=== PATIENT | female | born 2000 | race Caucasian/White ===

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

== ENCOUNTER 2021-05-25 21:59 | Inpatient (IN) ==
[2021-05-25 23:35] LABS: Basophils # (auto) 0.03 K/uL (0-0.2); Basophils % (auto) 0.5 %; Eosinophils # (auto) 0.05 K/uL (0-0.5); Eosinophils % (auto) 0.8 %; Hematocrit (blood only) 42.6 % (37-47); Hemoglobin 14.4 g/dL (12.0-16.0); Immature Granulocytes # (auto) 0.01 K/uL (0.00-0.02); Immature Granulocytes % (auto) 0.2 %; Lymphocytes # (auto) 2.69 K/uL (1.2-3.4); Lymphocytes % (auto) 44.9 %; Mean Corpuscular Hgb Conc 33.8 g/dL (32-36); Mean Corpuscular Volume 91.8 fL (80-100); Mean Platelet Volume 9.8 fL (7.4-10.4); Monocytes # (auto) 0.44 K/uL (0.11-0.59); Monocytes % (auto) 7.3 %; Neutrophils # (auto) 2.77 K/uL (1.4-6.5); Neutrophils % (auto) 46.3 %; Platelet Count 359 K/uL (130-400); RDW Coefficient of Variation 14.4 % (11.5-14.5); RDW Standard Deviation 48.8 fL (36.4-46.3); Red Blood Count 4.64 M/uL (4.2-5.4); White Blood Count 5.99 K/uL (4.8-10.8)
--- NOTE | 2021-05-25 23:37 | Emergency Department Note ---
History of Present Illness General Chief complaint: Alcohol Intoxication Stated complaint: suicidal ideation Time Seen by Provider: 05/25/21 23:08 Source: patient and friends Mode of arrival: ambulatory History of Present Illness Provider complaint: Mental health evaluation This is a 21-year-old female presents emergency department for mental health evaluation. Patient states she is here because she is having a panic attack and her friend brought her. Patient states she has longstanding history of anxiety and does take Prozac although she does not feel that is helping. She states intermittently she also will use hydroxyzine for her anxiety although she did not take that this evening. Patient declined to discuss what may have prompted her panic attacks. She admits to a history of suicide attempts but would not disclose how she attempted or when. She denies any current depression, hallucinations, or paranoia. Pt seen during a time of high acuity and national emergency pandemic while wearing PPE. Home Medications Medication Instructions Recorded Confirmed Type fluoxetine 10 mg capsule (Prozac) 10 mg PO DAILY 05/26/21 05/26/21 History Allergies Allergy/AdvReac Type Severity Reaction Status Date / Time No Known Allergies Allergy Verified 12/01/20 11:40 Past Med/Surg History Medical History Acute appendicitis Uses control Surgical History History of appendectomy No pertinent past surgical history Social History Smoking Status: Never smoker Tobacco Type: E-cigarettes / Vaping Preferred Language: Upper Sorbian Communication Ability: Effective Maintenance Journeyman Required: No Beliefs That Will Affect Care: None Feels Safe at Home: Yes Assistive Devices: Glasses Review of Systems A total of 10 systems reviewed and were otherwise negative All systems reviewed & are unremarkable except as noted in HPI & below Physical Exam Vital Signs Vital Signs - 24 hr 05/26/21 08:42 05/26/21 15:25 05/26/21 19:00 Temperature 37.5 C Temperature Source Oral Pulse Rate [Right Finger] 82 75 83 Pulse Rhythm [Right Finger] Regular Respiratory Rate 18 17 18 Respiratory Effort / Characteristics Non-Labored Non-Labored Respiratory Depth Normal Normal Normal Respiratory Pattern Regular Blood Pressure [Right Arm] 137/102 H 152/110 H 145/75 H Blood Pressure Mean [Right Arm] 113 124 98 Blood Pressure Position [Right Arm] Sitting Lying Pulse Oximetry 97 99 97 Oxygen Delivery Method Room Air Room Air Room Air GENERAL: alert, well appearing, well nourished, no distress, non-toxic, appears slightly intoxicated EYE EXAM: normal conjunctiva, PERRL and EOM's grossly intact OROPHARYNX: no exudate, no erythema, lips, buccal mucosa, and tongue normal and mucous membranes are moist NECK: supple, no nuchal rigidity, no adenopathy, non-tender LUNGS: Clear to auscultation. Normal chest wall mechanics, no w/r/r HEART: no murmurs, S1 normal and S2 normal ABDOMEN: abdomen soft, non-tender, normo-active bowel sounds, no masses, no rebound or guarding. BACK: Back is symmetrical on inspection and there is no deformity, no midline tenderness, no CVA tenderness. SKIN: no rashes and no bruising UPPER EXTREMITIES: upper extremities are grossly normal. FROM, nml pulses b/l. LOWER EXTREMITIES: No pitting edema. FROM, nml pulses b/l. NEURO EXAM: Normal sensorium, cranial nerves II-XII grossly intact, normal speech, no gross weakness of arms, no gross weakness of legs. Gross sensation intact. Course Course 0335: Patient resting, no distress, vital signs stable. 0900: Patient signed out to Dr. Odonnell at change of shift. Patient still awaiting sobriety and mental health evaluation. Administered Medications Discontinued Medications Fluoxetine HCl (Fluoxetine Hcl 20 Mg Cap) 20 mg PO NOW ONE Stop: 05/26/21 13:38 Last Admin: 05/26/21 13:46 Dose: 20 mg Documented by: [id number] Medical Decision Making Differential Diagnosis Differential diagnoses considered include mood disorder, infection, hypoglycemia, electrolyte abnormalities, cardiac sources, intracerebral event, t oxicologic, neurologic, as well as others. Medical Records Attestation: I reviewed the patient's medical records. Home Medications Current Medication List: was personally reviewed by me Laboratory Data Attestation: I reviewed the patient's lab results. Result diagrams: 05/25/21 23:22 05/25/21 23:22 Lab Results 05/25/21 05/25/21 05/25/21 Range/Units 23:22 23:22 23:22 WBC 5.99 (4.8-10.8) K/uL RBC 4.64 (4.2-5.4) M/uL Hgb 14.4 (12.0-16.0) g/dL Hct 42.6 (37-47) % MCV 91.8 (80-100) fL MCH 31.0 (25-34) pg MCHC 33.8 (32-36) g/dL RDW Std Deviation 48.8 H (36.4-46.3) fL RDW Coeff of Rj 14.4 (11.5-14.5) % Plt Count 359 (130-400) K/uL MPV 9.8 (7.4-10.4) fL Immature Gran % (Auto) 0.2 % Neut % (Auto) 46.3 % Lymph % (Auto) 44.9 % [place] % (Auto) 7.3 % Eos % (Auto) 0.8 % Baso % (Auto) 0.5 % Neut # (Auto) 2.77 (1.4-6.5) K/uL Lymph # (Auto) 2.69 (1.2-3.4) K/uL [place] # (Auto) 0.44 (0.11-0.59) K/uL Eos # (Auto) 0.05 (0-0.5) K/uL Baso # (Auto) 0.03 (0-0.2) K/uL Immature Gran # (Auto) 0.01 (0.00-0.02) K/uL Sodium 143 (136-145) mmol/L Potassium 3.3 L (3.5-5.1) mmol/L Chloride 109 H (98-107) mmol/L Carbon Dioxide 29 (21-32) mmol/L Anion Gap 5.0 (3-11) BUN 5 L (7-18) mg/dl Creatinine 0.69 (0.6-1.2) mg/dl Est Cr Clr Drug Dosing Not Reportable Est GFR ( Amer) 144.2 ml/min Est GFR (Non-Af Amer) 124.4 ml/min BUN/Creatinine Ratio 6.7 L (10-20) Glucose 86 (70-99) mg/dl Calcium 8.6 (8.5-10.1) mg/dl Total Bilirubin 0.3 (0.2-1) mg/dl AST 41 H (15-37) U/L ALT 83 H (12-78) U/L Alkaline Phosphatase 103 (45-117) U/L Total Protein 8.2 (6.4-8.2) gm/dl Albumin 4.2 (3.4-5.0) gm/dl Globulin 4.0 (2.5-4.0) gm/dl Albumin/Globulin Ratio 1.1 (0.9-2) TSH 2.400 (0.300-4.500) uIu/ml HCG, Qual (Negative) Urine Color Urine Appearance (Clear) Urine pH (4.5-7.5) Ur Specific [place] (1.000-1.030) Urine Protein (Negative) Urine Glucose (UA) (Negative) Urine Ketones (Negative) Urine Blood (Negative) Urine Nitrite (Negative) Urine Bilirubin (Negative) Urine Urobilinogen (Negative) Ur Leukocyte Esterase (Negative) Salicylates < 1.7 L (2.8-20) mg/dl Urine Opiates Screen (Neg) Ur Methadone, Qual (Neg) Acetaminophen < 2 L (10-30) ug/ml Urine Barbiturates (Neg) Ur Phencyclidine (PCP) (Neg) U Amphetamin/Meth Scrn (Neg) MDMA (Ecstasy) Screen (Neg) U Benzodiazepines Scrn (Neg) Ur Cocaine Metabolite (Neg) U Marijuana (THC) Screen (Neg) Ethyl Alcohol mg/dL (0-3) mg/dl COVID-19 Eval Order SARS-CoV-2 (PCR) (Negative) 05/25/21 05/25/21 05/26/21 Range/Units 23:22 23:22 00:00 WBC (4.8-10.8) K/uL RBC (4.2-5.4) M/uL Hgb (12.0-16.0) g/dL Hct (37-47) % MCV (80-100) fL MCH (25-34) pg MCHC (32-36) g/dL RDW Std Deviation (36.4-46.3) fL RDW Coeff of Rj (11.5-14.5) % Plt Count (130-400) K/uL MPV (7.4-10.4) fL Immature Gran % (Auto) % Neut % (Auto) % Lymph % (Auto) % [place] % (Auto) % Eos % (Auto) % Baso % (Auto) % Neut # (Auto) (1.4-6.5) K/uL Lymph # (Auto) (1.2-3.4) K/uL [place] # (Auto) (0.11-0.59) K/uL Eos # (Auto) (0-0.5) K/uL Baso # (Auto) (0-0.2) K/uL Immature Gran # (Auto) (0.00-0.02) K/uL Sodium (136-145) mmol/L Potassium (3.5-5.1) mmol/L Chloride (98-107) mmol/L Carbon Dioxide (21-32) mmol/L Anion Gap (3-11) BUN (7-18) mg/dl Creatinine (0.6-1.2) mg/dl Est Cr Clr Drug Dosing Est GFR ( Amer) ml/min Est GFR (Non-Af Amer) ml/min BUN/Creatinine Ratio (10-20) Glucose (70-99) mg/dl Calcium (8.5-10.1) mg/dl Total Bilirubin (0.2-1) mg/dl AST (15-37) U/L ALT (12-78) U/L Alkaline Phosphatase (45-117) U/L Total Protein (6.4-8.2) gm/dl Albumin (3.4-5.0) gm/dl Globulin (2.5-4.0) gm/dl Albumin/Globulin Ratio (0.9-2) TSH (0.300-4.500) uIu/ml HCG, Qual Negative (Negative) Urine Color Yellow Urine Appearance Clear (Clear) Urine pH 5.5 (4.5-7.5) Ur Specific [place] 1.005 (1.000-1.030) Urine Protein Negative (Negative) Urine Glucose (UA) Negative (Negative) Urine Ketones Negative (Negative) Urine Blood Negative (Negative) Urine Nitrite Negative (Negative) Urine Bilirubin Negative (Negative) Urine Urobilinogen Negative (Negative) Ur Leukocyte Esterase Negative (Negative) Salicylates (2.8-20) mg/dl Urine Opiates Screen (Neg) Ur Methadone, Qual (Neg) Acetaminophen (10-30) ug/ml Urine Barbiturates (Neg) Ur Phencyclidine (PCP) (Neg) U Amphetamin/Meth Scrn (Neg) MDMA (Ecstasy) Screen (Neg) U Benzodiazepines Scrn (Neg) Ur Cocaine Metabolite (Neg) U Marijuana (THC) Screen (Neg) Ethyl Alcohol mg/dL 380.2 H (0-3) mg/dl COVID-19 Eval Order SARS-CoV-2 (PCR) (Negative) 05/26/21 05/26/21 05/26/21 Range/Units 00:00 17:00 17:00 WBC (4.8-10.8) K/uL RBC (4.2-5.4) M/uL Hgb (12.0-16.0) g/dL Hct (37-47) % MCV (80-100) fL MCH (25-34) pg MCHC (32-36) g/dL RDW Std Deviation (36.4-46.3) fL RDW Coeff of Rj (11.5-14.5) % Plt Count (130-400) K/uL MPV (7.4-10.4) fL Immature Gran % (Auto) % Neut % (Auto) % Lymph % (Auto) % [place] % (Auto) % Eos % (Auto) % Baso % (Auto) % Neut # (Auto) (1.4-6.5) K/uL Lymph # (Auto) (1.2-3.4) K/uL [place] # (Auto) (0.11-0.59) K/uL Eos # (Auto) (0-0.5) K/uL Baso # (Auto) (0-0.2) K/uL Immature Gran # (Auto) (0.00-0.02) K/uL Sodium (136-145) mmol/L Potassium (3.5-5.1) mmol/L Chloride (98-107) mmol/L Carbon Dioxide (21-32) mmol/L Anion Gap (3-11) BUN (7-18) mg/dl Creatinine (0.6-1.2) mg/dl Est Cr Clr Drug Dosing Est GFR ( Amer) ml/min Est GFR (Non-Af Amer) ml/min BUN/Creatinine Ratio (10-20) Glucose (70-99) mg/dl Calcium (8.5-10.1) mg/dl Total Bilirubin (0.2-1) mg/dl AST (15-37) U/L ALT (12-78) U/L Alkaline Phosphatase (45-117) U/L Total Protein (6.4-8.2) gm/dl Albumin (3.4-5.0) gm/dl Globulin (2.5-4.0) gm/dl Albumin/Globulin Ratio (0.9-2) TSH (0.300-4.500) uIu/ml HCG, Qual (Negative) Urine Color Urine Appearance (Clear) Urine pH (4.5-7.5) Ur Specific [place] (1.000-1.030) Urine Protein (Negative) Urine Glucose (UA) (Negative) Urine Ketones (Negative) Urine Blood (Negative) Urine Nitrite (Negative) Urine Bilirubin (Negative) Urine Urobilinogen (Negative) Ur Leukocyte Esterase (Negative) Salicylates (2.8-20) mg/dl Urine Opiates Screen Neg (Neg) Ur Methadone, Qual Neg (Neg) Acetaminophen (10-30) ug/ml Urine Barbiturates Neg (Neg) Ur Phencyclidine (PCP) Neg (Neg) U Amphetamin/Meth Scrn Neg (Neg) MDMA (Ecstasy) Screen Neg (Neg) U Benzodiazepines Scrn Neg (Neg) Ur Cocaine Metabolite Neg (Neg) U Marijuana (THC) Screen Neg (Neg) Ethyl Alcohol mg/dL (0-3) mg/dl COVID-19 Eval Order Covid19 at [facility] SARS-CoV-2 (PCR) NEGATIVE (Negative) MDM Narrative Patient well-appearing here although on check of labs patient found to be profoundly intoxicated. Patient admitted to anxiety, history of suicide attempts, however would not answer initial questions otherwise. Patient sobered up in usual and expected fashion, vital signs otherwise stable throughout. Patient signed out to Dr. Odonnell in the morning pending sobriety and additional mental health evaluation. No evidence of acute alcohol withdrawal. I do not suspect other occult infectious etiology, coingestion, or other toxidrome. Impression & Plan Alcoholic intoxication, Anxiety Discharge Plan Visit Data Chief Complaint: Alcohol Intoxication Stated Complaint: suicidal ideation ED Provider: Jose Francisco Odonnell Discharge Problem: Alcoholic intoxication, Anxiety Patient Disposition: Admitted As Inpatient Discharge Instructions Interventions: ED Discharge Assessment Last Done: 05/26/21 21:34 Discharge Problem: Alcoholic intoxication Qualifiers: Complication of substance-induced condition: uncomplicated Qualified Code(s): F10.920 - Alcohol use, unspecified with intoxication, uncomplicated
[2021-05-25 23:53] LABS: Alanine Aminotransferase 83 U/L (12-78); Albumin Level 4.2 gm/dl (3.4-5.0); Aspartate Aminotransferase 41 U/L (15-37); BUN Creatinine Ratio 6.7 (10-20); Blood Urea Nitrogen 5 mg/dl (7-18); Calcium 8.6 mg/dl (8.5-10.1); Carbon Dioxide 29 mmol/L (21-32); Chloride 109 mmol/L (98-107); Est GFR (African American) 144.2 ml/min; Est GFR (Non-African American) 124.4 ml/min; Glucose 86 mg/dl (70-99); Potassium 3.3 mmol/L (3.5-5.1); Sodium 143 mmol/L (136-145)
[2021-05-25 23:55] LABS: Pregnancy Test, Serum Negative (Negative)
[2021-05-26 00:04] LABS: Albumin Globulin Ratio 1.1 (0.9-2); Alkaline Phosphatase 103 U/L (45-117); Bilirubin,Total 0.3 mg/dl (0.2-1); Total Protein 8.2 gm/dl (6.4-8.2)
[2021-05-26 00:05] LABS: Acetaminophen < 2 ug/ml (10-30); Salicylate < 1.7 mg/dl (2.8-20)
[2021-05-26 00:24] LABS: Appearance Urine Clear (Clear); Bilirubin Urine Negative (Negative); Blood Urine Negative (Negative); Color Urine Yellow; Glucose Urine UA Negative (Negative); Ketones Urine Negative (Negative); Leukocyte Esterase Urine Negative (Negative); Nitrite Urine Negative (Negative); Protein Urine Negative (Negative); Specific Gravity Urine 1.005 (1.000-1.030); Urobilinogen Urine Negative (Negative); pH Urine 5.5 (4.5-7.5)
[2021-05-26 00:43] LABS: Amphetamines+Metham, Urine Neg (Neg); Barbiturates, Urine Neg (Neg); Benzodiazepine, Urine Neg (Neg); Cocaine, Urine Neg (Neg); MDMA (Ecstacy), Urine Neg (Neg); Methadone, Urine Neg (Neg); Opiate, Urine Neg (Neg); Phencyclidine, Urine Neg (Neg)
--- NOTE | 2021-05-26 09:03 | Emergency Department Note ---
ED Visit Note ED Physician Sign Out Note: 21 yr old intoxicated female brought in by friends for concerns of mental health. She is here on a 302 petition following sobering, it is not currently a warrant. She was too intoxicated to be discharged overnight. She was signed out to my Dr Gordillo pending sobering up and mental health evaluation. Patient is withholding of information when I discuss her situation. It is clear that she has significant mental health issue and requires hospitalization after extensive discussions with her, friends, and family. Case Management agrees with need for hospitalization. She is medically clear. Signed out to Dr Acevedo pending determination of placement. Jose Francisco Odonnell MD : Alcoholic intoxication Qualifiers: Complication of substance-induced condition: uncomplicated Qualified Code(s): F10.920 - Alcohol use, unspecified with intoxication, uncomplicated
[2021-05-26] MEDS ORDERED: FLUoxetine HCL 20 MG CAP PO ONE (13:37)
[2021-05-26] MEDS ORDERED: BISMUTH SUBSALICYLATE LIQD 236 ML PO PRN (21:03)
[2021-05-26] MEDS ORDERED: MAGNESIUM HYDROXIDE SUSP 30 ML UDC PO PRN (21:03)
[2021-05-26] MEDS ORDERED: ALUMINUM/MAGNESIUM SUSP 30 ML UDC PO PRN (21:03)
[2021-05-26] MEDS ORDERED: hydrOXYzine HCl 25 MG TAB PO PRN (21:03)
[2021-05-26] MEDS ORDERED: SODIUM CHLORIDE 0.65% NA SOLN 45 ML (OCEAN) PRN (21:03)
[2021-05-26] MEDS ORDERED: ACETAMINOPHEN 325 MG TAB PO PRN (21:03)
[2021-05-27] MEDS ORDERED: FLUoxetine HCL 20 MG CAP PO SCH (09:00)
[2021-05-27] MEDS: FOLIC ACID 1 MG TAB PO SCH (10:02)
[2021-05-27] MEDS: THIAMINE HCL 100 MG TAB PO SCH (10:02)
[2021-05-27] MEDS: LORazepam 1 MG TAB PO PRN ×2 (10:12→16:15)
[2021-05-27] MEDS ORDERED: NICOTINE POLACRILEX 2 MG GUM MT PRN (15:58)
--- NOTE | 2021-05-27 17:34 | History & Physical ---
Date of Service May 27, 2021 Impression / Recommendations Impression The patient is a 21 year old with a history of OCD, ADHD and panic disorder who was admitted for alcohol use, depression and SI. The patient is deemed unstable and requires psychiatric hospitalization for diagnostic clarification, safety and stabilization, medication management and development of further coping skills. She is at high acute risk for self-harm based on SI and risk factors including alcohol use. Diagnostically consistent with MDD vs substance-induced depression along with OCD and some symptoms of PTSD. Meets criteria for alcohol use binge drinking and nicotine use. The patient's audit score and use history suggests problematic substance use. Brief intervention was offered and accepted. Intervention was greater than 5 minutes in length and included assessing readiness to quit, advice on how to reduce or abstain and to set a specific goal for this hospitalization. web worker will also assist in anticipating barriers to reducing or abstaining from substance use and in problem-solving for solutions to those problems while arranging for referral to appropriate treatment. Discussed option to start naltrexone to help reduce risks of drinking and risks of self-harm as drinking worsens her SI, she declined at this time as she plans to return home with parents for remainder of semester where she does not drink and feels this supportive environment will be enough. The patient is in action stage with regards to transtheoretical model of change. The patient is advised to decrease consumption due to depressant effects and risk of interaction with prescription medications. The patient would like to stop drinking or at least cut down on drinking and will be provided with recovery materials to continue to educate self on how to cope with their condition without using substances. Discussed medication treatment options in detail. Discussed risks, benefits and alternatives. Patient would like to increase her prozac dose to 30mg to further address her symptoms of depression and OCD as well as potential benefit for PTSD symptoms. Counseled on black box warning of potential for emergence of or increased SI and need to let staff know should this occur or should they feel unsafe. Also discussed importance of seeking emergency care following discharge if this side effect occurs in the future. (1) Obsessive compulsive disorder: (2) Major depression, recurrent: 05/27/21--The patient was admitted to the [facility] ([facility]) on q15 min checks (behavioral with suicide precautions) for safety. The patient will participate in group, recreational, and milieu therapies and will be offered additional individual and family sessions as clinically appropriate. Increase Prozac from 20 to 30mg qd and offer nicotine replacement gum. Inventory Assets Strengths: supportive family, outpatient provider Needs: coping skills, therapist Risk Factors Assessment : Yes Do You Have Access To A Gun?: No Health Problems: No Mental Health Diagnoses: Yes Substance Use Disorders: Yes Previous Attempt: Yes Previous Attempt; Highly Lethal: No Previous Attempt; Didn't Tell Anyone: Yes Family History of Suicide: Yes Hopelessness: Yes Protective Factors Assessment Employed: Yes Stable Relationships: Yes Supportive Family: Yes Good Rapport with Provider: Yes Psychiatric History Identifying Data KIERAN SALDAÑA is a 21-year-old woman and [employer] senior who lives with roommates off- campus, has a history of OCD, panic disorder and ADHD, and was admitted on 05/26/21 21:25 on a 201 voluntary commitment after presenting with elevated RADHA and reporting worsening mood and SI with plan. Chief Complaint "Drinking makes things much worse". History of Present Illness Kieran presents for admission after making concerning statements of SI to roommates while drinking on Tuesday. Kieran describes a history of mood symptoms including panic attacks, OCD and depression which worsened over the summer and she began seeing an outpatient psychiatrist near her family's home in [place] and was started on prozac and concerta for ADHD. She feels the Prozac has been helping with significant reduction in panic attacks but ongoing depression and OCD. On Tuesday she felt very triggered by a professor's lecture about eating disorders and the harm they can cause. She has a pas history of restrictive eating and she found herself ruminating about the harm she may have done to her body. From there her OCD thoughts took over and she felt like "I couldn't get out of my own head". That lead her to drink cans of 4loco with her roommates to help reduce the OCD thoughts. She acknowledges that when she drinks she often develops passive SI and sometimes considers plans but never acts on these plans. She notes that she will sometimes think of passive SI while not drinking but drinking alcohol always makes things worse. While intoxicated she told roommates she no longer wanted to be alive and stated she may go try to jump from the roof which prompted them to convince her to come to the ED. Once clinically sober she denied ever having any intent but noted that she has been having a difficult time this semester and having periods of SI. She endorses depressive symptoms of hopelessness, helplessness, and guilt as well as decreased concentration. She denies any changes in sleep, appetite, interest, or energy level. She feels the OCD thoughts tend to trigger depression and this in turn leads to thoughts of SI that others would be better off if she weren't alive or that she is a burden. She states she has significant deterrents to suicide including her family and states "I think about it but I would never do it". Psychiatric ROS notable for: no hx of delonte, hx panic improving on prozac, hx anxiety largely somatic sx, PTSD sx of hypervigilance/avoidance/flashbacks/night terrors, hx restrictive eating disorder, no hx self-harm. Past Psychiatric History Previous Psych History: ADHD, OCD, panic disorder Current Psychiatric Diagnosis: OCD Outpatient Services: has psychiatrist in [place] Previous Psych Admissions: none Do You Have Access To A Gun?: No History of Previous Suicide Attempt: Yes (at age 15 took 10 excedrin pills after reasearching 8 was max dose) Describe Attempts in the Past: None Past Medication Trials: none Allergies Allergy/AdvReac Type Severity Reaction Status Date / Time No Known Allergies Allergy Verified 12/01/20 11:40 Home Medications Medication Instructions Recorded Confirmed Type fluoxetine 10 mg capsule (Prozac) 10 mg PO DAILY 05/26/21 05/26/21 History Family History Family History of: Alcoholism/Drug Abuse Alcohol History Hx of Alcohol Use Over the Past 12 Months: Yes AUDIT Total Score: 23 binge drinking pattern, hx of ~10 blackouts, has gone more than 10 days without drinking and no withdrawal symptoms in last few weeks while home visiting parents; no hx of withdrawal seziures Smoking Use Smoking Status: Current every day smoker (vapes daily for last 4 years) Substance History Hx of Prescription Med Misuse Over the Past 12 Months: No Hx of Over the Counter Med Misuse Over the Past 12 Months: No Hx of Inhalent Misuse Over the Past 12 Months: No Hx of Organic Substance Use Over the Past 12 Months: No Hx of Illegal Substances/Street Drug Use Over Past 12 Months: No Problems as a Result of Past Substance Use: None Identified Personal History Living Arrangements: Apartment Highest Grade Completed: Some College Highest Grade Completed Comment: Senior at [employer] 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) Marital Status: Single Number Of Children: 0 Beliefs That Will Affect Care: None Current Legal Problems: No Hx Traumatic Life Events: Yes Patient History Medical History Acute appendicitis ADHD Major depression, recurrent Obsessive compulsive disorder Panic disorder Uses control Surgical History History of appendectomy No pertinent past surgical history Social History Smoking Status: Never smoker Tobacco Type: E-cigarettes / Vaping Preferred Language: [place] Communication Ability: Effective Service Car Operator Required: No Beliefs That Will Affect Care: None Feels Safe at Home: Yes Assistive Devices: Glasses Review of Systems Review of Systems: All systems reviewed & are unremarkable except as noted in HPI & below (some shakiness which she thinks could be due to nicotine withdrawal) Physical Exam Psychiatric: Orientation: alert and oriented x 3 Apperance: appropriately dressed and appropriately groomed Eye Contact: good eye contact Motor Behavior: steady gait and station and no abnormal motor movements Speech: normal rate/rhythm/volume of speech Affect: + anxious affect Mood: + depressed mood and + anxious mood Thought Process: goal directed thought process Thought Content: reality based without delusions Suicidal Thoughts: denies suicidal plan and denies suicidal intent; + reports suicidal thoughts experiences intermittent intrusive SI Homicidal Thoughts: denies homicidal thoughts Hallucinations: no auditory hallucinations and no visual hallucinations Cognition: recent memory grossly intact, remote memory grossly intact, attention grossly intact and language grossly intact Estimated Intelligence: consistent with education level Insight: + fair insight Judgement: + fair judgement Vital Signs (Past 24 Hours): Last Vital Signs Temp 37 C 05/27/21 16:07 Pulse 112 H 05/27/21 16:07 Resp 16 05/27/21 16:07 BP 142/106 H 05/27/21 16:07 Pulse Ox 96 05/26/21 22:08 Exam Statement: A physical exam was performed in the ED by Dr. Gordillo for the purposes of medical clearance. I accept that physical as correct and adequate for the purposes of the inpatient physical exam. Results & Data ([facility]) Laboratory Results Laboratory Results - last 24 hr 05/26/21 05/26/21 17:00 17:00 COVID-19 Eval Order Covid19 at [facility] SARS-CoV-2 (PCR) NEGATIVE Current Inpatient Medications Current Inpatient Medications: Current Inpatient Medications Acetaminophen (Acetaminophen 325 Mg Tab) 650 mg PO Q4H PRN PRN Reason: Headache or Minor Fever Stop: 06/25/21 21:02 Al Hydrox/Mg Hydrox/Simethicone (Aluminum/Magnesium Susp 30 Ml Udc) 30 ml PO Q4H PRN PRN Reason: GI Upset Stop: 06/25/21 21:02 Bismuth Subsalicylate (Bismuth Subsalicylate Liqd 236 Ml) 15 ml PO PRN PRN PRN Reason: Loose Stool Stop: 06/25/21 21:02 Fluoxetine HCl (Fluoxetine Hcl 20 Mg Cap) 20 mg PO QAM MICHAEL Stop: 06/26/21 08:59 Last Admin: 05/27/21 10:39 Dose: 20 mg Documented by: Folic Acid (Folic Acid 1 Mg Tab) 1 mg PO QAM MICHAEL Stop: 06/26/21 08:59 Last Admin: 05/27/21 10:02 Dose: 1 mg Documented by: Hydroxyzine HCl (Hydroxyzine Hcl 25 Mg Tab) 50 mg PO HSZ PRN PRN Reason: Insomnia Stop: 06/25/21 21:02 Hydroxyzine HCl (Hydroxyzine Hcl 25 Mg Tab) 25 mg PO Q4H PRN PRN Reason: Anxiety Stop: 06/25/21 21:02 Lorazepam (Lorazepam 1 Mg Tab) 1 - 3 mg PO UD PRN; Protocol PRN Reason: EtoH Withdrawal AWSS 6-10+ Stop: 06/26/21 08:25 Last Admin: 05/27/21 16:15 Dose: 1 mg Documented by: Magnesium Hydroxide (Magnesium Hydroxide Susp 30 Ml Udc) 30 ml PO DAILY PRN PRN Reason: Constipation Stop: 06/25/21 21:02 Nicotine Polacrilex (Nicotine Polacrilex 2 Mg Gum) 1 piece MT PRN PRN PRN Reason: Prophylaxis Stop: 06/26/21 15:57 Sodium Chloride (Sodium Chloride 0.65% Na Soln 45 Ml ([place])) 1 - 2 sprays NA PRN PRN PRN Reason: Nasal Dryness/Congestion Stop: 06/25/21 21:02 Thiamine HCl (Thiamine Hcl 100 Mg Tab) 100 mg PO QAM MICHAEL Stop: 06/26/21 08:59 Last Admin: 05/27/21 10:02 Dose: 100 mg Documented by:
[2021-05-28] MEDS: FLUoxetine HCL 10 MG CAP PO SCH (09:34)
[2021-05-28] MEDS: FOLIC ACID 1 MG TAB PO SCH (09:35)
[2021-05-28] MEDS: THIAMINE HCL 100 MG TAB PO SCH (09:35)
[2021-05-28] MEDS: LORazepam 1 MG TAB PO PRN (09:56)
[2021-05-28] MEDS: hydrOXYzine HCl 25 MG TAB PO PRN (15:11)
[2021-05-28] MEDS: NICOTINE 14 MG/24 HR PATCH TD SCH (16:07)
--- NOTE | 2021-05-28 16:26 | Psychiatric Progress Note ---
Date of Service May 28, 2021 Impression / Recommendations Impression The patient is a 21 year old with a history of OCD, ADHD and panic disorder who was admitted for alcohol use, depression and SI. The patient is deemed unstable and requires psychiatric hospitalization for diagnostic clarification, safety and stabilization, medication management and development of further coping skills. She is at high acute risk for self-harm based on SI and risk factors including alcohol use. Diagnostically consistent with MDD vs substance-induced depression along with OCD and some symptoms of PTSD. Meets criteria for alcohol use binge drinking and nicotine use. The patient's audit score and use history suggests problematic substance use. Brief intervention was offered and accepted. Intervention was greater than 5 minutes in length and included assessing readiness to quit, advice on how to reduce or abstain and to set a specific goal for this hospitalization. handy worker will also assist in anticipating barriers to reducing or abstaining from substance use and in problem-solving for solutions to those problems while arranging for referral to appropriate treatment. Discussed option to start naltrexone to help reduce risks of drinking and risks of self-harm as drinking worsens her SI, she declined at this time as she plans to return home with parents for remainder of semester where she does not drink and feels this supportive environment will be enough. The patient is in action stage with regards to transtheoretical model of change. The patient is advised to decrease consumption due to depressant effects and risk of interaction with prescription medications. The patient would like to stop drinking or at least cut down on drinking and will be provided with recovery materials to continue to educate self on how to cope with their condition without using substances. Discussed medication treatment options in detail. Discussed risks, benefits and alternatives. Patient would like to increase her prozac dose to 30mg to further address her symptoms of depression and OCD as well as potential benefit for PTSD symptoms. Counseled on black box warning of potential for emergence of or increased SI and need to let staff know should this occur or should they feel unsafe. Also discussed importance of seeking emergency care following discharge if this side effect occurs in the future. Today showing ongoing wiliness to discuss mood and reaching out to her supports. Tolerating prozac increase. (1) Obsessive compulsive disorder: (2) Major depression, recurrent: 05/28/21--Receiving ativan per CIWA protocol, vitals stable, also getting thiamine and folic acid. She would like to try the nicotine patch instead of the gum. Tolerating Prozac 30mg qd without any side effects so far. 05/27/21--The patient was admitted to the [facility] on q15 min checks (behavioral with suicide precautions) for safety. The patient will participate in group, recreational, and milieu therapies and will be offered additional individual and family sessions as clinically appropriate. Increase Prozac from 20 to 30mg qd and offer nicotine replacement gum. Inventory Assets Strengths: supportive family, outpatient provider Needs: coping skills, therapist Risk Factors Assessment : Yes Do You Have Access To A Gun?: No Health Problems: No Mental Health Diagnoses: Yes Substance Use Disorders: Yes Previous Attempt: Yes Previous Attempt; Highly Lethal: No Previous Attempt; Didn't Tell Anyone: Yes Family History of Suicide: Yes Hopelessness: Yes Protective Factors Assessment Employed: Yes Stable Relationships: Yes Supportive Family: Yes Good Rapport with Provider: Yes Interval History Identifying Information 21 year old with a history of OCD, ADHD and panic disorder who was admitted for alcohol use, depression and SI. Chief Complaint "I've had an emotional day". Review of Systems Sleep Information Total Hours of Sleep: 6.5 Meal Information Percent Meal Consumed - Breakfast: 90 Percent Meal Consumed - Lunch: 80 Percent Meal Consumed - Dinner: 75 Nutrition Comment: pt. asleep; meal dated, labeled and refrigerated Subjective Subjective Patient was seen & assessed and interval progress reviewed with treatment team nursing and social work. She received Ativan last night and this morning per CIWA scale procotcol. She slept well and had a good conversation with her family which was "emotional in a good way". She denies any SI today. She hasn't had any side effects from the increased prozac dose. Physical Exam Psychiatric Orientation: alert and oriented x 3 Apperance: appropriately dressed and appropriately groomed Eye Contact: good eye contact Motor Behavior: steady gait and station and no abnormal motor movements Speech: normal rate/rhythm/volume of speech Affect: + anxious affect Mood: + depressed mood and + anxious mood Thought Process: goal directed thought process Thought Content: reality based without delusions Suicidal Thoughts: denies suicidal thoughts, denies suicidal plan and denies suicidal intent Homicidal Thoughts: denies homicidal thoughts Hallucinations: no auditory hallucinations and no visual hallucinations Cognition: recent memory grossly intact, remote memory grossly intact, attention grossly intact and language grossly intact Estimated Intelligence: consistent with education level Insight: + fair insight Judgement: + fair judgement Vital Signs (Past 24 Hours) Last Vital Signs Temp 36.6 C 05/28/21 06:00 Pulse 87 05/28/21 06:18 Resp 14 05/28/21 06:00 BP 139/97 05/28/21 06:18 Pulse Ox 96 05/26/21 22:08 Results & Data ([facility]) Current Inpatient Medications Current Inpatient Medications: Current Inpatient Medications Acetaminophen (Acetaminophen 325 Mg Tab) 650 mg PO Q4H PRN PRN Reason: Headache or Minor Fever Stop: 06/25/21 21:02 Al Hydrox/Mg Hydrox/Simethicone (Aluminum/Magnesium Susp 30 Ml Udc) 30 ml PO Q4H PRN PRN Reason: GI Upset Stop: 06/25/21 21:02 Bismuth Subsalicylate (Bismuth Subsalicylate Liqd 236 Ml) 15 ml PO PRN PRN PRN Reason: Loose Stool Stop: 06/25/21 21:02 Fluoxetine HCl (Fluoxetine Hcl 10 Mg Cap) 30 mg PO QAM MICHAEL Stop: 06/27/21 08:59 Last Admin: 05/28/21 09:34 Dose: 30 mg Documented by: Folic Acid (Folic Acid 1 Mg Tab) 1 mg PO QAM [facility] Stop: 06/26/21 08:59 Last Admin: 05/28/21 09:35 Dose: 1 mg Documented by: Hydroxyzine HCl (Hydroxyzine Hcl 25 Mg Tab) 50 mg PO HSZ PRN PRN Reason: Insomnia Stop: 06/25/21 21:02 Hydroxyzine HCl (Hydroxyzine Hcl 25 Mg Tab) 25 mg PO Q4H PRN PRN Reason: Anxiety Stop: 06/25/21 21:02 Last Admin: 05/28/21 15:11 Dose: 25 mg Documented by: Lorazepam (Lorazepam 1 Mg Tab) 1 - 3 mg PO UD PRN; Protocol PRN Reason: EtoH Withdrawal AWSS 6-10+ Stop: 06/26/21 08:25 Last Admin: 05/28/21 09:56 Dose: 1 mg Documented by: Magnesium Hydroxide (Magnesium Hydroxide Susp 30 Ml Udc) 30 ml PO DAILY PRN PRN Reason: Constipation Stop: 06/25/21 21:02 Miscellaneous (Remove Nicoderm Patch) 1 ea N/A QAM MICHAEL Stop: 06/28/21 08:59 Nicotine (Nicotine 14 Mg/24 Hr Patch) 14 mg TD QAM MICHAEL Stop: 06/27/21 14:29 Last Admin: 05/28/21 16:07 Dose: 14 mg Documented by: Nicotine Polacrilex (Nicotine Polacrilex 2 Mg Gum) 1 piece MT PRN PRN PRN Reason: Prophylaxis Stop: 06/26/21 15:57 Last Admin: 05/27/21 17:59 Dose: 1 piece Documented by: Sodium Chloride (Sodium Chloride 0.65% Na Soln 45 Ml ([place])) 1 - 2 sprays NA PRN PRN PRN Reason: Nasal Dryness/Congestion Stop: 06/25/21 21:02 Thiamine HCl (Thiamine Hcl 100 Mg Tab) 100 mg PO QAM MICHAEL Stop: 06/26/21 08:59 Last Admin: 05/28/21 09:35 Dose: 100 mg Documented by: Mental Health & Subst Abuse Tx Psychiatrist Date of Appointment with Psychiatrist: 06/02/21 Therapist Name of Therapist: Sharifa Valle Date of Therapist Appointment: 05/29/21 Cloud Systems Architect Name of Cloud Systems Architect: None Post Discharge Appointments Primary Care Physician Name Of Family Doctor: [facility]
--- NOTE | 2021-05-29 08:35 | Psychiatric Progress Note ---
Date of Service May 29, 2021 Impression / Recommendations Impression The patient is a 21 year old with a history of OCD, ADHD and panic disorder who was admitted for alcohol use, depression and SI. The patient is deemed unstable and requires psychiatric hospitalization for diagnostic clarification, safety and stabilization, medication management and development of further coping skills. She is at high acute risk for self-harm based on SI, MDD, OCD, anxiety and alcohol use disorder. Diagnostically consistent with MDD vs substance-induced depression along with OCD and some symptoms of PTSD. Meets criteria for alcohol use binge drinking and nicotine use. The patient's audit score and use history suggests problematic substance use. Brief intervention was offered and accepted. Intervention was greater than 5 minutes in length and included assessing readiness to quit, advice on how to reduce or abstain and to set a specific goal for this hospitalization. rehabilitation caseworker will also assist in anticipating barriers to reducing or abstaining from substance use and in problem-solving for solutions to those problems while arranging for referral to appropriate treatment. Discussed option to start naltrexone to help reduce risks of drinking and risks of self-harm as drinking worsens her SI, she declined at this time as she plans to return home with parents for remainder of semester where she does not drink and feels this supportive environment will be enough. The patient is in action stage with regards to transtheoretical model of change. The patient is advised to decrease consumption due to depressant effects and risk of interaction with prescription medications. The patient would like to stop drinking or at least cut down on drinking and will be provided with recovery materials to continue to educate self on how to cope with their condition without using substances. Discussed medication treatment options in detail. Discussed risks, benefits and alternatives. Patient would like to increase her prozac dose to 30mg to further address her symptoms of depression and OCD as well as potential benefit for PTSD symptoms. Counseled on black box warning of potential for emergence of or increased SI and need to let staff know should this occur or should they feel unsafe. Also discussed importance of seeking emergency care following discharge if this side effect occurs in the future. She continues to minimize her recent challenges with alcohol use, especially given conflicting collateral information. We discussed how an IOP may be very beneficial but she would prefer to discuss this in her family meeting tomorrow. Discussed that Wellbutrin can be used for nicotine use disorder if she finds that these cravings worsen or if she would like a medication to help her avoid resuming nicotine use after discharge. She will consider this. Remains opposed to considering naltrexone for alcohol use disorder. She remains anxious about potential medication side effects. (1) Obsessive compulsive disorder: (2) Major depression, recurrent: 05/29/21--Increase fluoxetine from 30mg to 40mg to further target OCD symptoms, anxiety and depression. Discussed potential option of augmentation with Wellbutrin XL for nicotine use disorder should cravings worsen or persist and that this could also be considered in the future as an outpatient as she feels comfortable discussing her nicotine use with her outpatient psychiatrist. Family meeting tomorrow. Slightly hypertensive today-should follow-up with PCP regarding this after discharge, especially if it persists even while not drinking alcohol. 05/28/21--Receiving ativan per [facility] protocol, vitals stable, also getting thiamine and folic acid. She would like to try the nicotine patch instead of the gum. Tolerating Prozac 30mg qd without any side effects so far. 05/27/21--The patient was admitted to the [facility] ([facility] mental health unit) on q15 min checks (behavioral with suicide precautions) for safety. The patient will participate in group, recreational, and milieu therapies and will be offered additional individual and family sessions as clinically appropriate. Increase Prozac from 20 to 30mg qd and offer nicotine replacement gum. She does not wish to start naltrexone for alcohol use disorder. Inventory Assets Strengths: supportive family, outpatient provider Needs: coping skills, therapist Risk Factors Assessment : Yes Do You Have Access To A Gun?: No Health Problems: No Mental Health Diagnoses: Yes Substance Use Disorders: Yes Previous Attempt: Yes Previous Attempt; Highly Lethal: No Previous Attempt; Didn't Tell Anyone: Yes Family History of Suicide: Yes Hopelessness: Yes Protective Factors Assessment Employed: Yes Stable Relationships: Yes Supportive Family: Yes Good Rapport with Provider: Yes Interval History Identifying Information 21 year old with a history of OCD, ADHD and panic disorder who was admitted for alcohol use, depression and SI. Chief Complaint "I don't have cravings". Review of Systems Sleep Information Total Hours of Sleep: 6.75 Meal Information Percent Meal Consumed - Breakfast: 90 Percent Meal Consumed - Lunch: 80 Percent Meal Consumed - Dinner: 100 Nutrition Comment: pt. asleep; meal dated, labeled and refrigerated Subjective Subjective Patient was seen & assessed and interval progress reviewed with treatment team nursing and social work. Collateral from family concerning for more extensive alcohol use and difficulty avoiding use even while with family then Cordelia reports. She's reporting improvement in mood but she was tearful during groups. Did not require ativan for CIWA this morning. Today she notes her mood is stable. She denies any side effects from the Prozac and is interested in increasing the dose again as we had discussed. She is having some mild nicotine cravings. She doesn't feel that she struggles with avoiding alcohol use or craving it unless she is in an environment where others are drinking. She feels her biggest struggle is that once she begins drinking she has trouble limiting her alcohol consumption and drinks to excess. Physical Exam Psychiatric Orientation: alert and oriented x 3 Apperance: appropriately dressed and appropriately groomed Eye Contact: good eye contact Motor Behavior: steady gait and station and no abnormal motor movements Speech: normal rate/rhythm/volume of speech Affect: + anxious affect Mood: + depressed mood and + anxious mood Thought Process: goal directed thought process Thought Content: reality based without delusions Suicidal Thoughts: denies suicidal thoughts Homicidal Thoughts: denies homicidal thoughts Hallucinations: no auditory hallucinations and no visual hallucinations Cognition: recent memory grossly intact, remote memory grossly intact, attention grossly intact and language grossly intact Estimated Intelligence: consistent with education level Insight: + fair insight Judgement: + fair judgement Vital Signs (Past 24 Hours) Last Vital Signs Temp 36.7 C 05/29/21 06:00 Pulse 76 05/29/21 06:39 Resp 16 05/29/21 06:00 BP 128/88 05/29/21 06:39 Pulse Ox 96 05/26/21 22:08 Results & Data ([facility]) Current Inpatient Medications Current Inpatient Medications: Current Inpatient Medications Acetaminophen (Acetaminophen 325 Mg Tab) 650 mg PO Q4H PRN PRN Reason: Headache or Minor Fever Stop: 06/25/21 21:02 Al Hydrox/Mg Hydrox/Simethicone (Aluminum/Magnesium Susp 30 Ml Udc) 30 ml PO Q4H PRN PRN Reason: GI Upset Stop: 06/25/21 21:02 Bismuth Subsalicylate (Bismuth Subsalicylate Liqd 236 Ml) 15 ml PO PRN PRN PRN Reason: Loose Stool Stop: 06/25/21 21:02 Fluoxetine HCl (Fluoxetine Hcl 10 Mg Cap) 30 mg PO QAM MICHAEL Stop: 06/27/21 08:59 Last Admin: 05/28/21 09:34 Dose: 30 mg Documented by: Folic Acid (Folic Acid 1 Mg Tab) 1 mg PO QAM MICHAEL Stop: 06/26/21 08:59 Last Admin: 05/28/21 09:35 Dose: 1 mg Documented by: Hydroxyzine HCl (Hydroxyzine Hcl 25 Mg Tab) 50 mg PO HSZ PRN PRN Reason: Insomnia Stop: 06/25/21 21:02 Hydroxyzine HCl (Hydroxyzine Hcl 25 Mg Tab) 25 mg PO Q4H PRN PRN Reason: Anxiety Stop: 06/25/21 21:02 Last Admin: 05/28/21 15:11 Dose: 25 mg Documented by: Lorazepam (Lorazepam 1 Mg Tab) 1 - 3 mg PO UD PRN; Protocol PRN Reason: EtoH Withdrawal AWSS 6-10+ Stop: 06/26/21 08:25 Last Admin: 05/28/21 09:56 Dose: 1 mg Documented by: Magnesium Hydroxide (Magnesium Hydroxide Susp 30 Ml Udc) 30 ml PO DAILY PRN PRN Reason: Constipation Stop: 06/25/21 21:02 Miscellaneous (Remove Nicoderm Patch) [facility] Stop: 06/28/21 08:59 Nicotine (Nicotine 14 Mg/24 Hr Patch) 14 mg TD [facility] Stop: 06/27/21 14:29 Last Admin: 05/28/21 16:07 Dose: 14 mg Documented by: Nicotine Polacrilex (Nicotine Polacrilex 2 Mg Gum) 1 piece MT PRN PRN PRN Reason: Prophylaxis Stop: 06/26/21 15:57 Last Admin: 05/27/21 17:59 Dose: 1 piece Documented by: Sodium Chloride (Sodium Chloride 0.65% Na Soln 45 Ml ([place])) 1 - 2 sprays NA PRN PRN PRN Reason: Nasal Dryness/Congestion Stop: 06/25/21 21:02 Thiamine HCl (Thiamine Hcl 100 Mg Tab) 100 mg PO QAM MICHAEL Stop: 06/26/21 08:59 Last Admin: 05/28/21 09:35 Dose: 100 mg Documented by: Mental Health & Subst Abuse Tx Psychiatrist Date of Appointment with Psychiatrist: 06/02/21 Therapist Name of Therapist: Sharifa Valle Date of Therapist Appointment: 05/29/21 Line Inspector Name of Line Inspector: None Post Discharge Appointments Primary Care Physician Name Of Family Doctor: Dov Ervin
[2021-05-29] MEDS: FLUoxetine HCL 10 MG CAP PO SCH (09:42)
[2021-05-29] MEDS: THIAMINE HCL 100 MG TAB PO SCH (09:42)
[2021-05-29] MEDS: FOLIC ACID 1 MG TAB PO SCH (09:42)
[2021-05-29] MEDS: NICOTINE 14 MG/24 HR PATCH TD SCH (09:45)
[2021-05-29] MEDS: hydrOXYzine HCl 25 MG TAB PO PRN (21:45)
[2021-05-30] MEDS: FOLIC ACID 1 MG TAB PO SCH (09:13)
[2021-05-30] MEDS: THIAMINE HCL 100 MG TAB PO SCH (09:13)
[2021-05-30] MEDS: FLUoxetine HCL 20 MG CAP PO SCH (09:13)
[2021-05-30] MEDS: NICOTINE 14 MG/24 HR PATCH TD SCH ×2 (09:18→11:27)
--- NOTE | 2021-05-30 10:20 | Psychiatric Progress Note ---
Date of Service May 30, 2021 Impression / Recommendations Impression The patient is a 21 year old with a history of OCD, ADHD and panic disorder who was admitted for alcohol use, depression and SI. Continued inpatient hospitalization is medically necessary for ongoing monitoring and safety. 05/30/21: tolerating medication, plans to return home. (1) Obsessive compulsive disorder: (2) Major depression, recurrent: (3) Alcohol use disorder: 05/30/21--Reviewed care by Dr. Bocanegra in italics. Continue current medication and treatment plan. Current therapist specializes in dual dx but patient had not been forthcoming with regards to her use. 05/29/21--Increase fluoxetine from 30mg to 40mg to further target OCD symptoms, anxiety and depression. Discussed potential option of augmentation with Wellbutrin XL for nicotine use disorder should cravings worsen or persist and that this could also be considered in the future as an outpatient as she feels comfortable discussing her nicotine use with her outpatient psychiatrist. Family meeting tomorrow. Slightly hypertensive today-should follow-up with PCP regarding this after discharge, especially if it persists even while not drinking alcohol. The patient's audit score and use history suggests problematic substance use. Brief intervention was offered and accepted. Intervention was greater than 5 minutes in length and included assessing readiness to quit, advice on how to reduce or abstain and to set a specific goal for this hospitalization. machine lay out worker will also assist in anticipating barriers to reducing or abstaining from substance use and in problem-solving for solutions to those problems while arranging for referral to appropriate treatment. Discussed option to start naltrexone to help reduce risks of drinking and risks of self-harm as drinking worsens her SI, she declined at this time as she plans to return home with parents for remainder of semester where she does not drink and feels this supportive environment will be enough. The patient is in action stage with regards to transtheoretical model of change. The patient is advised to decrease consumption due to depressant effects and risk of interaction with prescription medications. The patient would like to stop drinking or at least cut down on drinking and will be provided with recovery materials to continue to educate self on how to cope with their condition without using substances. 05/28/21--Receiving ativan per CIWA protocol, vitals stable, also getting thiamine and folic acid. She would like to try the nicotine patch instead of the gum. Tolerating Prozac 30mg qd without any side effects so far. 05/27/21--The patient was admitted to the [facility] (health system mental health unit) on q15 min checks (behavioral with suicide precautions) for safety. The patient will participate in group, recreational, and milieu therapies and will be offered additional individual and family sessions as clinically appropriate. Increase Prozac from 20 to 30mg qd and offer nicotine replacement gum. She does not wish to start naltrexone for alcohol use disorder. Inventory Assets Strengths: supportive family, outpatient provider Needs: coping skills, therapist Risk Factors Assessment : Yes Do You Have Access To A Gun?: No Health Problems: No Mental Health Diagnoses: Yes Substance Use Disorders: Yes Previous Attempt: Yes Previous Attempt; Highly Lethal: No Previous Attempt; Didn't Tell Anyone: Yes Family History of Suicide: Yes Hopelessness: Yes Protective Factors Assessment Employed: Yes Stable Relationships: Yes Supportive Family: Yes Good Rapport with Provider: Yes Interval History Identifying Information 21 year old with a history of OCD, ADHD and panic disorder who was admitted for alcohol use, depression and SI. Chief Complaint "things are good with my parents, I'm ready to admit that alcohol is a problem". Review of Systems Sleep Information Total Hours of Sleep: 5 Meal Information Percent Meal Consumed - Breakfast: 95 Percent Meal Consumed - Lunch: 100 Percent Meal Consumed - Dinner: 100 Nutrition Comment: pt. asleep; meal dated, labeled and refrigerated Subjective Subjective Patient was seen & assessed and interval progress reviewed with nursing and social work. family meeting today as parents concerned about need for rehab as patient minimized impact of ETOH use on her suicidal behavior. 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 No evidence of ETOH withdrawal on AWSS protocol.. Tolerating Prozac titration. Physical Exam Psychiatric Orientation: alert and oriented x 3 Apperance: appropriately dressed and appropriately groomed Eye Contact: good eye contact Motor Behavior: steady gait and station and no abnormal motor movements Speech: normal rate/rhythm/volume of speech Affect: + anxious affect Mood: + anxious mood; no depressed mood Thought Process: goal directed thought process Thought Content: reality based without delusions Suicidal Thoughts: denies suicidal thoughts, denies suicidal plan and denies suicidal intent Homicidal Thoughts: denies homicidal thoughts Hallucinations: no auditory hallucinations and no visual hallucinations Cognition: recent memory grossly intact, remote memory grossly intact, attention grossly intact and language grossly intact Estimated Intelligence: consistent with education level Insight: + limited insight Vital Signs (Past 24 Hours) Last Vital Signs Temp 36.4 C L 05/30/21 06:54 Pulse 88 05/30/21 06:54 Resp 16 05/30/21 06:54 BP 132/97 05/30/21 06:57 Pulse Ox 96 05/26/21 22:08 Results & Data ([facility]) Current Inpatient Medications Current Inpatient Medications: Current Inpatient Medications Acetaminophen (Acetaminophen 325 Mg Tab) 650 mg PO Q4H PRN PRN Reason: Headache or Minor Fever Stop: 06/25/21 21:02 Al Hydrox/Mg Hydrox/Simethicone (Aluminum/Magnesium Susp 30 Ml Udc) 30 ml PO Q4H PRN PRN Reason: GI Upset Stop: 06/25/21 21:02 Bismuth Subsalicylate (Bismuth Subsalicylate Liqd 236 Ml) 15 ml PO PRN PRN PRN Reason: Loose Stool Stop: 06/25/21 21:02 Fluoxetine HCl (Fluoxetine Hcl 20 Mg Cap) 40 mg PO QAM MICHAEL Stop: 06/29/21 08:59 Last Admin: 05/30/21 09:13 Dose: 40 mg Documented by: Folic Acid (Folic Acid 1 Mg Tab) 1 mg PO QAM MICHAEL Stop: 06/26/21 08:59 Last Admin: 05/30/21 09:13 Dose: 1 mg Documented by: Hydroxyzine HCl (Hydroxyzine Hcl 25 Mg Tab) 50 mg PO HSZ PRN PRN Reason: Insomnia Stop: 06/25/21 21:02 Hydroxyzine HCl (Hydroxyzine Hcl 25 Mg Tab) 25 mg PO Q4H PRN PRN Reason: Anxiety Stop: 06/25/21 21:02 Last Admin: 05/29/21 21:45 Dose: 25 mg Documented by: Lorazepam (Lorazepam 1 Mg Tab) 1 - 3 mg PO UD PRN; Protocol PRN Reason: EtoH Withdrawal AWSS 6-10+ Stop: 06/26/21 08:25 Last Admin: 05/28/21 09:56 Dose: 1 mg Documented by: Magnesium Hydroxide (Magnesium Hydroxide Susp 30 Ml Udc) 30 ml PO DAILY PRN PRN Reason: Constipation Stop: 06/25/21 21:02 Miscellaneous (Remove Nicoderm Patch) 1 ea N/A QAM MICHAEL Stop: 06/28/21 08:59 Last Admin: 05/30/21 09:18 Dose: Not Given Documented by: Nicotine (Nicotine 14 Mg/24 Hr Patch) 14 mg TD QAM MICHAEL Stop: 06/27/21 14:29 Last Admin: 05/30/21 09:18 Dose: Not Given Documented by: Nicotine Polacrilex (Nicotine Polacrilex 2 Mg Gum) 1 piece MT PRN PRN PRN Reason: Prophylaxis Stop: 06/26/21 15:57 Last Admin: 05/27/21 17:59 Dose: 1 piece Documented by: Sodium Chloride (Sodium Chloride 0.65% Na Soln 45 Ml ([place])) 1 - 2 sprays NA PRN PRN PRN Reason: Nasal Dryness/Congestion Stop: 06/25/21 21:02 Thiamine HCl (Thiamine Hcl 100 Mg Tab) 100 mg PO QAM MICHAEL Stop: 06/26/21 08:59 Last Admin: 05/30/21 09:13 Dose: 100 mg Documented by: Mental Health & Subst Abuse Tx Psychiatrist Date of Appointment with Psychiatrist: 06/02/21 Therapist Name of Therapist: Sharifa Valle Date of Therapist Appointment: 05/29/21 Rock Singer Name of Rock Singer: None Post Discharge Appointments Primary Care Physician Name Of Family Doctor: [facility]
[2021-05-31] MEDS: FLUoxetine HCL 20 MG CAP PO SCH (09:27)
[2021-05-31] MEDS: FOLIC ACID 1 MG TAB PO SCH (09:27)
[2021-05-31] MEDS: hydrOXYzine HCl 25 MG TAB PO PRN (09:27)
[2021-05-31] MEDS: THIAMINE HCL 100 MG TAB PO SCH (09:27)
[2021-05-31] MEDS: NICOTINE 14 MG/24 HR PATCH TD SCH (09:30)
--- NOTE | 2021-05-31 09:47 | Discharge Summary ---
Date of Service May 31, 2021 History of Present Illness As per Dr. Bocanegra on admission: Cordelia presents for admission after making concerning statements of SI to roommates while drinking on Tuesday. Cordelia describes a history of mood symptoms including panic attacks, OCD and depression which worsened over the summer and she began seeing an outpatient psychiatrist near her family's home in [place] and was started on prozac and concerta for ADHD. She feels the Prozac has been helping with significant reduction in panic attacks but ongoing depression and OCD. On Tuesday she felt very triggered by a professor's lecture about eating disorders and the harm they can cause. She has a pas history of restrictive eating and she found herself ruminating about the harm she may have done to her body. From there her OCD thoughts took over and she felt like "I couldn't get out of my own head". That lead her to drink cans of 4loco with her roommates to help reduce the OCD thoughts. She acknowledges that when she drinks she often develops passive SI and sometimes considers plans but never acts on these plans. She notes that she will sometimes think of passive SI while not drinking but drinking alcohol always makes things worse. While intoxicated she told roommates she no longer wanted to be alive and stated she may go try to jump from the roof which prompted them to convince her to come to the ED. Once clinically sober she denied ever having any intent but noted that she has been having a difficult time this semester and having periods of SI. She endorses depressive symptoms of hopelessness, helplessness, and guilt as well as decreased concentration. She denies any changes in sleep, appetite, interest, or energy level. She feels the OCD thoughts tend to trigger depression and this in turn leads to thoughts of SI that others would be better off if she weren't alive or that she is a burden. She states she has significant deterrents to suicide including her family and states "I think about it but I would never do it". Psychiatric ROS notable for: no hx of delonte, hx panic improving on prozac, hx anxiety largely somatic sx, PTSD sx of hypervigilance/avoidance/flashbacks/night terrors, hx restrictive eating disorder, no hx self-harm. Physical Exam Psychiatric See admission H&P and DOD summary. Vital Signs (Past 24 Hours) Last Vital Signs Temp 36.5 C 05/31/21 06:39 Pulse 64 05/31/21 06:40 Resp 16 05/31/21 06:39 BP 139/101 H 05/31/21 06:40 Pulse Ox 96 05/26/21 22:08 Temp Pulse Resp BP Pulse Ox 37.0 C 72 18 137/84 96 05/31/21 10:00 05/31/21 10:00 05/31/21 10:00 05/31/21 10:00 05/31/21 09:46 Principal Diagnosis major depressive disorder Psychiatric Data See daily stay summary. In short, safety was maintained and the patient was cooperative with care. Medication changes included an increased in Prozac and they tolerated this well. A family session was held with parents who were supportive of her remaining enrolled but returning home to [place] and being more intentional in her therapy to address alcohol use disorder rather than minimizing impact. She was agreeable to pursue AA and/or an IOP program if her outpatient treatment team recommends it. A safety plan was completed prior to discharge. She plans to abstain from ETOH and nicotine products. Day of Discharge Assessment Today the patient voices readiness for discharge. They note improvement in mood and deny thoughts to harm self or others. Thoughts remain organized and they are improved from admission. There is no evidence of psychosis. They agree to take mediations as prescribed and keep follow-up appointments. They are stable for discharge to outpatient level of care. Transition of Care Transition Of Care Record: was reviewed with the patient Advance Directives Advance Directives Information Provided: Yes Advance Directives: No Mental Health Advance Directive: No Advance Directives on File: No Living Will: No Power of L Tacker: No Advance Directives Reason:: Declines as Mental Health Visit. Risk Factors Assessment : Yes Do You Have Access To A Gun?: No Health Problems: No Mental Health Diagnoses: Yes Substance Use Disorders: Yes Previous Attempt: Yes Previous Attempt; Highly Lethal: No Previous Attempt; Didn't Tell Anyone: Yes Family History of Suicide: Yes Hopelessness: Yes Protective Factors Assessment Employed: Yes Stable Relationships: Yes Supportive Family: Yes Good Rapport with Provider: Yes Tobacco Cessation at Discharge Tobacco Cessation Medication Prescribed at Discharge: Offered & Pt Refused Total Time Total Time Spent: Greater Than 30 Minutes Total Time Includes: Examination of the patient, Discharge Planning and Medication Reconciliation Discharge Data Lab Results 05/25/21 05/25/21 05/25/21 23:22 23:22 23:22 WBC 5.99 RBC 4.64 Hgb 14.4 Hct 42.6 MCV 91.8 MCH 31.0 MCHC 33.8 RDW Std Deviation 48.8 H RDW Coeff of Rj 14.4 Plt Count 359 MPV 9.8 Immature Gran % (Auto) 0.2 Neut % (Auto) 46.3 Lymph % (Auto) 44.9 [place] % (Auto) 7.3 Eos % (Auto) 0.8 Baso % (Auto) 0.5 Neut # (Auto) 2.77 Lymph # (Auto) 2.69 [place] # (Auto) 0.44 Eos # (Auto) 0.05 Baso # (Auto) 0.03 Immature Gran # (Auto) 0.01 Sodium 143 Potassium 3.3 L Chloride 109 H Carbon Dioxide 29 Anion Gap 5.0 BUN 5 L Creatinine 0.69 Est Cr Clr Drug Dosing Not Reportable Est GFR ( Amer) 144.2 Est GFR (Non-Af Amer) 124.4 BUN/Creatinine Ratio 6.7 L Glucose 86 Calcium 8.6 Total Bilirubin 0.3 AST 41 H ALT 83 H Alkaline Phosphatase 103 Total Protein 8.2 Albumin 4.2 Globulin 4.0 Albumin/Globulin Ratio 1.1 TSH 2.400 HCG, Qual Urine Color Urine Appearance Urine pH Ur Specific Muse Urine Protein Urine Glucose (UA) Urine Ketones Urine Blood Urine Nitrite Urine Bilirubin Urine Urobilinogen Ur Leukocyte Esterase Salicylates < 1.7 L Urine Opiates Screen Ur Methadone, Qual Acetaminophen < 2 L Urine Barbiturates Ur Phencyclidine (PCP) U Amphetamin/Meth Scrn MDMA (Ecstasy) Screen U Benzodiazepines Scrn Ur Cocaine Metabolite U Marijuana (THC) Screen Ethyl Alcohol mg/dL COVID-19 Eval Order SARS-CoV-2 (PCR) 05/25/21 05/25/21 05/26/21 23:22 23:22 00:00 WBC RBC Hgb Hct MCV MCH MCHC RDW Std Deviation RDW Coeff of Rj Plt Count MPV Immature Gran % (Auto) Neut % (Auto) Lymph % (Auto) [place] % (Auto) Eos % (Auto) Baso % (Auto) Neut # (Auto) Lymph # (Auto) [place] # (Auto) Eos # (Auto) Baso # (Auto) Immature Gran # (Auto) Sodium Potassium Chloride Carbon Dioxide Anion Gap BUN Creatinine Est Cr Clr Drug Dosing Est GFR ( Amer) Est GFR (Non-Af Amer) BUN/Creatinine Ratio Glucose Calcium Total Bilirubin AST ALT Alkaline Phosphatase Total Protein Albumin Globulin Albumin/Globulin Ratio TSH HCG, Qual Negative Urine Color Yellow Urine Appearance Clear Urine pH 5.5 Ur Specific Muse 1.005 Urine Protein Negative Urine Glucose (UA) Negative Urine Ketones Negative Urine Blood Negative Urine Nitrite Negative Urine Bilirubin Negative Urine Urobilinogen Negative Ur Leukocyte Esterase Negative Salicylates Urine Opiates Screen Ur Methadone, Qual Acetaminophen Urine Barbiturates Ur Phencyclidine (PCP) U Amphetamin/Meth Scrn MDMA (Ecstasy) Screen U Benzodiazepines Scrn Ur Cocaine Metabolite U Marijuana (THC) Screen Ethyl Alcohol mg/dL 380.2 H COVID-19 Eval Order SARS-CoV-2 (PCR) 05/26/21 05/26/21 05/26/21 00:00 17:00 17:00 WBC RBC Hgb Hct MCV MCH MCHC RDW Std Deviation RDW Coeff of Rj Plt Count MPV Immature Gran % (Auto) Neut % (Auto) Lymph % (Auto) [place] % (Auto) Eos % (Auto) Baso % (Auto) Neut # (Auto) Lymph # (Auto) [place] # (Auto) Eos # (Auto) Baso # (Auto) Immature Gran # (Auto) Sodium Potassium Chloride Carbon Dioxide Anion Gap BUN Creatinine Est Cr Clr Drug Dosing Est GFR ( Amer) Est GFR (Non-Af Amer) BUN/Creatinine Ratio Glucose Calcium Total Bilirubin AST ALT Alkaline Phosphatase Total Protein Albumin Globulin Albumin/Globulin Ratio TSH HCG, Qual Urine Color Urine Appearance Urine pH Ur Specific Muse Urine Protein Urine Glucose (UA) Urine Ketones Urine Blood Urine Nitrite Urine Bilirubin Urine Urobilinogen Ur Leukocyte Esterase Salicylates Urine Opiates Screen Neg Ur Methadone, Qual Neg Acetaminophen Urine Barbiturates Neg Ur Phencyclidine (PCP) Neg U Amphetamin/Meth Scrn Neg MDMA (Ecstasy) Screen Neg U Benzodiazepines Scrn Neg Ur Cocaine Metabolite Neg U Marijuana (THC) Screen Neg Ethyl Alcohol mg/dL COVID-19 Eval Order Covid19 at [facility] SARS-CoV-2 (PCR) NEGATIVE Hospital Course (1) Obsessive compulsive disorder: (2) Major depression, recurrent: (3) Alcohol use disorder: 05/30/21--Reviewed care by Dr. Bocanegra in italics. Continue current medication and treatment plan. Current therapist specializes in dual dx but patient had not been forthcoming with regards to her use. 05/29/21--Increase fluoxetine from 30mg to 40mg to further target OCD symptoms, anxiety and depression. Discussed potential option of augmentation with Wellbutrin XL for nicotine use disorder should cravings worsen or persist and that this could also be considered in the future as an outpatient as she feels comfortable discussing her nicotine use with her outpatient psychiatrist. Family meeting tomorrow. Slightly hypertensive today-should follow-up with PCP reg arding this after discharge, especially if it persists even while not drinking alcohol. The patient's audit score and use history suggests problematic substance use. Brief intervention was offered and accepted. Intervention was greater than 5 minutes in length and included assessing readiness to quit, advice on how to reduce or abstain and to set a specific goal for this hospitalization. tin recovery worker will also assist in anticipating barriers to reducing or abstaining from substance use and in problem-solving for solutions to those problems while arranging for referral to appropriate treatment. Discussed option to start naltrexone to help reduce risks of drinking and risks of self-harm as drinking worsens her SI, she declined at this time as she plans to return home with parents for remainder of semester where she does not drink and feels this supportive environment will be enough. The patient is in action stage with regards to transtheoretical model of change. The patient is advised to decrease consumption due to depressant effects and risk of interaction with prescription medications. The patient would like to stop drinking or at least cut down on drinking and will be provided with recovery materials to continue to educate self on how to cope with their condition without using substances. 05/28/21--Receiving ativan per [facility] protocol, vitals stable, also getting thiamine and folic acid. She would like to try the nicotine patch instead of the gum. Tolerating Prozac 30mg qd without any side effects so far. 05/27/21--The patient was admitted to the [facility] ([facility] mental health unit) on q15 min checks (behavioral with suicide precautions) for safety. The patient will participate in group, recreational, and milieu therapies and will be offered additional individual and family sessions as clinically appropriate. Increase Prozac from 20 to 30mg qd and offer nicotine replacement gum. She does not wish to start naltrexone for alcohol use disorder. Mental Health & Subst Abuse Tx Psychiatrist Name of Psychiatrist: Sharifa Leonard - Jane MEDEIROS Psychiatrist's Date of Appointment with Psychiatrist: 06/02/21 Psychiatric Appointment Comment: Resume regular psychiatry schedule. Psychiatrist Release of Information: Obtained, Reviewed and Signed Therapist Name of Therapist: [facility] - Linda Johnson Therapist's Date of Therapist Appointment: 06/05/21 Time of Therapist Appointment: 2:00 PM Therapy Appointment Comment: Resume regular therapy schedule. Therapist Release of Information: Obtained, Reviewed and Signed Check Weigher Name of Check Weigher: None Post Discharge Appointments Primary Care Physician Name Of Family Doctor: [facility] Primary Care Provider Appointment Comment: Follow up as needed. Primary Care Release of Information: Obtained, Reviewed and Signed Smoking Cessation Counseling Tobacco Cessation Medication Prescribed at Discharge: Offered & Pt Refused Contact Information Discharge Discharge Address: [address] [place] [id number] Discharge Plan Discharge Items Patient Disposition: Home - Self-Care Reason For Visit: MDD Discharge Diagnosis: major depressive disorder Activity: Resume your previous activity Non-emergency contact: Primary Care Provider, Psychiatrist and Therapist Call non-emergency contact if: you have any medication questions and your symptoms worsen Follow-up/Referrals: PCP,NO [Primary Care Provider] - Diet: Regular Addtl Attending Provider Instructions: You may use two of 20 mg caps (own supply) to equal 40 mg dose if desire. Concerta was not listed on your home med list. It was prescribed by your psychiatric provider in early May but certainly your mood and alcohol use impact your attention and we'd advise against controlled substance at this time and/or formal testing given comorbid depression and alcohol use disorder. It is being returned to you as a courtesy but do not resume this medication until you are seen by your prescriber. hydroxyzine as needed was also not listed on your home med list and is being returned to you at discharge as you did well with a limited number of doses here. SPECIAL CARE INSTRUCTIONS: 1. Follow through with your scheduled aftercare appointments. If unable to keep an appointment, please call to reschedule. 2. Take your medication only as prescribed. Medication should not be changed or stopped without the approval of your doctor. In the event of worsening symptoms or concerns about side effects, contact your doctor immediately. 3. Utilize new healthy coping skills, anger management skills, and stress management skills learned during your hospitalization. Journal feelings and process them with a support person. Identify stressors or situations that may result in relapse, deterioration or inappropriate behaviors and develop a plan to deal with those issues. 4. If your coping skills are ineffective and you are in crisis, contact your outpatient providers for direction. If unable to reach your providers, please call the [facility] CRISIS LINE AT , go to the [facility] walk-in center at [address], [address], [place], or go to the closest Emergency Room. 5. Avoid alcohol and un-prescribed drugs. 6. You have been provided with the Mental Health Advance Directives Pamphlet for your review. 7. Your condition is stable for discharge to outpatient level of care, but recovery is an ongoing process. Ifthoughts to harm yourself or others return, follow the safety plan developed during your stay. Planning for a safe return home includes securing weapons. Our treatment team recommends weaponsbe removed from the home until your outpatient provider reassesses your progress. In rare cases where the items themselvescannot be removed, guns and ammunitionshould be secured separatelyand keys stored by a reliable personoutside of the home. If you were admitted on an involuntary commitment, the police or other legal authorities may be involved in this process. AFTERCARE APPOINTMENTS: * Please call your insurance company prior to your scheduled appointment to confirm your aftercare providers are covered. Take your insurance information to your appointments. WHO TO CALL AND WHEN: Medical Emergencies: For questions or emergencies related to your hospital stay, please contact the Inpatient Behavioral Health Unit at [phone]. A digital content marketing manager is on-call 28/02 for the Behavioral Health Unit for emergencies At any time you feel your situation is an emergency, you may also call 911 immediately. Pending Studies at Discharge: No Stand-Alone Forms: My [employer], Smoking Cessation Medications and DC Order Prescriptions: New fluoxetine 40 mg capsule 40 mg PO QAM 30 Days Qty: 30 RF: 0 hydroxyzine HCl 25 mg Tablet 25 mg PO Q4H PRN (Reason: panic) Qty: 1 RF: 0 Discontinued fluoxetine [Prozac] 10 mg Capsule 10 mg PO DAILY RF: 0 Discharge Orders: Discharge Order (Routine); Ordered 05/31/21 Ordered By: Sun Garza Admission Data Admit Date/Time: 05/26/21 21:25 Attending Provider: Sun Garza Admit Provider: Fe Bocanegra Primary Care Provider: PCP,NO Other Interventions: Discharge Summary Assessment (RN) Last Done: 05/31/21 09:46 PSY Interdisciplinary Discharge Planning Last Done: 05/31/21 09:45 Coding Level of Care Code 36262 D/C day mgmt > 30 min Diagnoses Obsessive compulsive disorder F42.9 Major depression, recurrent F33.9 Alcohol use disorder
== END 2021-05-31 10:12 | disposition home or self-care (01) | DRG 885 ==
LOC: ED 21:59 → SUATTDRO 05-26 21:25 → 3S 05-26 21:25 → ED 05-26 21:34 → 3S 05-26 22:36